=== PATIENT | male | born 1945 | race Caucasian/White ===

== ENCOUNTER 2019-06-23 08:14 | Outpatient (CLI) | payer MEDICARE, OTHER, SELFPAY ==
[2019-06-23 09:24] LABS: Prostate Specific Antigen < 0.02 ng/mL (0-4)
== END 2019-06-23 08:15 | disposition home or self-care (01) ==
LOC: ONCMED 08:14
PROVIDERS: Family Provider Family Medicine; PCP Family Medicine; Visit Provider Internal Medicine Medical Oncology
DX: C61 Malignant neoplasm of prostate (principal)
CPT/HCPCS: 84153

== ENCOUNTER 2019-08-05 08:21 | Outpatient (CLI) | payer MEDICARE, OTHER, SELFPAY ==
[2019-08-05 09:34] LABS: Prostate Specific Antigen 0.05 ng/mL (0-4)
== END 2019-08-05 08:22 | disposition home or self-care (01) ==
LOC: ONCMED 08:24
PROVIDERS: Family Provider Family Medicine; PCP Family Medicine; Visit Provider Internal Medicine Medical Oncology
DX: C61 Malignant neoplasm of prostate (principal)
CPT/HCPCS: 84153

== ENCOUNTER 2019-08-17 13:10 | Outpatient (RCR) | payer MEDICARE, OTHER, SELFPAY ==
[2019-08-17 13:38] LABS: Miscellaneous Test See Scanned Lab Rpt
== END 2019-08-24 23:59 | disposition home or self-care (01) ==
LOC: ONCMED 13:10
PROVIDERS: Family Provider Family Medicine; PCP Family Medicine; Visit Provider Internal Medicine Medical Oncology
DX: C61 Malignant neoplasm of prostate (principal)
CPT/HCPCS: 36415

== ENCOUNTER 2019-11-17 07:00 | Outpatient (CLI) | payer MEDICARE, OTHER, SELFPAY | END 2019-11-17 07:01 | disposition home or self-care (01) | LOC: ONCMED 07:04 | PROVIDERS: PCP Family Medicine; Visit Provider Internal Medicine Medical Oncology | DX: C61 Malignant neoplasm of prostate (principal) | CPT/HCPCS: 84153 ==

== ENCOUNTER 2020-01-13 08:11 | Outpatient (CLI) | payer MEDICARE, OTHER, SELFPAY ==
--- NOTE | 2020-01-14 07:16 | ONC FU_ITS ---
Dr. Stanley Patient Follow-Up Note Patient: Pola Greer Unit #: [id number]: 1945 Dicatated By: Darren Stanley M.D.Date of Visit:Jan 13, 2020 Onc Med Follow-up/Prog Note Chief Complaint: Prostate cancer. 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 He had been diagnosed with Aaron score 7 adenocarcinoma of the prostate in 2009. He underwent robotic-assisted prostatectomy in October 2009. He first had evidence of biochemical recurrence in March 2016 with PSA 0.3 ng/mL. He reportedly had a palpable nodule on digital rectal exam. He was treated with radiation to the prostate bed, completed on 06/24/2016 to a total dose of 7200 cGy. His baseline pretreatment PSA was 0.60 ng/mL, and by 08/26/2016 it had declined to 0.02 ng/mL. However, as of January 2017 it had increased to 0.59 ng/mL, and by 03/27/2017 it was up to 0.87 ng/mL. Further evaluation with C11 PET choline imaging and MR showed findings consistent with metastatic involvement in the L5 vertebral body. He was referred to [facility], where he underwent radiofrequency ablation to the L5 vertebral body. He then began androgen deprivation therapy with Depo-Lupron together with Casodex for 30 days. He continued androgen deprivation with a 30 mg injection of Depo-Lupron on 07/30/2017. Their recommendation was to continue his treatment for 12-18 months and then consider transitioning to intermittent hormonal therapy. His PSA level here on 12/15/2017 was down to 0.07 ng/mL. He then continued his further follow-up at [facility]. He was given a 45 mg Lupron injection on 02/10/2018. As of 03/23/2018 the PSA was up slightly, to 1.4 ng/mL, and as of 05/27/2018 it had further increased to 2.4 ng/mL. A testosterone level from 06/04/2018 was castrate range at 7.0, and his PSA at that point was up to 3.3 ng/mL. MR of the prostate on 06/04/2018 was negative for local recurrence and negative for lymph node metastasis. PET CT choline on 06/04/2018 showed progression of choline avid skeletal metastatic prostate cancer both above and below the diaphragms. Sites of involvement include the T10 vertebral body, right sixth rib, left humeral head, left iliac wing, and left side of the L5 vertebral body. MRI of the lumbar spine on 06/05/2018 showed mild compression fracture at L5 without retropulsion. There was additional metastasis involving the T10 vertebral body and a small metastasis in the L4 vertebral body. There was partially visualized metastasis in the left iliac bone. Given the aggressive nature of his disease, the recommendation was to proceed with a trial of chemotherapy with docetaxel/prednisone and to continue androgen deprivation therapy with Depo-Lupron. He began his 1st of 6 planned cycles of docetaxel/prednisone on 06/16/2018. His treatment was stopped after the 5th cycle, completed on 09/08/2018, due to increasing toxicities, including fatigue, peripheral neuropathy, and [employer] side effects. He had a follow-up visit at [facility] in October 2018. His PSA was undetectable at <0.1 ng/mL. He was recommended to continue androgen deprivation with Lupron and to consider addition of Zytiga or Xtandi with any evidence of further disease progression. As of May 2019 his PSA level remained <0.02 ng/mL, but in July 2019 it did increase slightly, to 0.05 ng/mL. He had a follow-up visit at [facility] on 12/06/2019. His PSA level at that point had increased to 0.51 ng/mL. His C-11 choline scan revealed multiple new choline avid osseous metastases involving the right sixth rib, right T6 vertebral body, and new foci of choline uptake in the previously ablated L5 vertebral body. Uptake in right paratracheal and cervical lymph nodes was indeterminate but suspicious for metastatic disease. MRI of the prostate revealed additional osseous metastases in the L4 and L5 vertebral bodies and possibly the femoral neck. With those findings, he began second generation androgen deprivation therapy with abiraterone 1000 mg daily together with prednisone 5 mg twice daily. In addition, he was given SBRT to the right sixth rib and T6 vertebral body lesions, completed on 12/30/2019. His other medical illnesses include hypertension and hyperlipidemia. He also has had treatment for bicipital tendinitis. He is a nonsmoker. INTERIM HISTORY: Due to the further progression of his disease, I had requested a next generation sequencing study to be performed on the October 2009 biopsy. The study was resulted on 12/23/2019. There were no actionable mutations identified. In particular, the BRCA1 and BRCA2 mutations were not detected. The tumor did test positive androgen receptor by IHC. It was MSI stable. He is seen for a follow-up visit. Thus far he has been tolerating the abiraterone/prednisone with tolerable side effects. He does have some fatigue, but he is still doing some work at the farm. His ECOG score is 1. His appetite is good. He has not had fever. He continues to have some hot flashes and sweating. He occasionally has a little diarrhea. He has mild exertional dyspnea and some cough, but those are attributable to seasonal allergies. He has had no chest pain. He has some urgency with urination, but bladder function remains adequate. He currently has no significant joint or bone pain. He has no focal neurologic symptoms. Medications: Atorvastatin Calcium 1 Tablet (of 10 mg) Tablet Oral daily, EQ Loratadine 1 Tablet (of 10 mg) Oral daily PRN, Flonase 2 spray(s) (of 50 mcg/act) Suspension Nasal daily PRN, Leuprolide Acetate (6 Month) 45 mg (of 45 mg) Intramuscular q 24 weeks, PredniSONE 1 Tablet (of 5 mg) Oral b.i.d., Telmisartan 1 Tablet (of 40 mg) Tablet Oral daily, Zytiga 4 Tablet (of 250 mg) Oral daily Allergies: PCN and Sulfa. Review of Systems: Constitutional - His energy is fair, but he does tire easily. He is able to do work, but not as much. His appetite is good and his weight is stable. No fevers. He has some hot flashes and sweating. ECOG score is 1, ENMT - He has seasonal allergies. No mouth sores. No sore throat or difficulty swallowing, Hematologic/Lymphatic - No abnormal bruising or bleeding, Respiratory - He has some shortness of breath at timess and cough which are allergy related and seasonal. No pleuritic pain or hemoptysis, Cardiovascular - No angina pain. No palpitations, Gastrointestinal - No nausea or vomiting. No heartburn or acid reflux. No diarrhea or constipation. No blood in the stool or black stools, Genitourinary (M) - No dysuria or hematuria. He has some urgency with urination. No incontinence, Musculoskeletal - No joint or bone pain, Integumentary - No skin complications, Neurologic - No headache. He has occasional dizziness. No numbness or tingling. No other focal neurologic symptoms, Psychiatric - He has some mild anxiety. No depression. No insomnia. Vital Signs: Performed on Jan 13, 2020 08:42 Height - 65.00 in Weight - 175.8 lbs (LOW) BSA - 1.87 sq.m BMI - 29.25 Temperature - 97.3 F (LOW) Pulse - 78 /min Respiration - 17 /min BP - 129/89 mm(hg) O2 Sat - 97 % Pain - 0 Fatigue - 2 Physical Examination: Constitutional - He looks good generally, Eyes - Sclerae nonicteric. Conjunctivae clear, ENMT - No lesions noted in the oral cavity, Hematologic/Lymphatic - No cervical, clavicular, or axillary adenopathy, Respiratory - Lungs are clear with good air movement bilaterally, Cardiovascular - Heart rhythm is regular. There is a II/ systolic murmur. There is no gallop or rub noted, Abdomen - Soft. Liver and spleen are not enlarged. There is no abdominal mass or ascites noted and there is no inguinal adenopathy, Back/Spine - No bony tenderness in the spine or ribs, Extremities - No edema. Pedal pulses are palpable bilaterally, Integumentary - No skin eruption, Neurologic - No focal neurologic deficits noted. Impression: 1. Patient with [place] score 7 adenocarcinoma of the prostate, stage III at initial diagnosis in 2009, but with subsequent progression to stage IV. 2. He underwent radical prostatectomy in October 2009. 3. He had evidence of biochemical recurrence in January 2016, and he was then given radiation to the prostate bed. Treatment was completed on 06/24/2016 to a total dose of 7200 cGy. 4. He had rising PSA level in March 2017, and at that point there was evidence on imaging studies of metastatic involvement in the L5 vertebral body. He underwent radiofrequency ablation to L5. 5. He then began androgen deprivation therapy with Depo-Lupron together with Casodex for 30 days. He had a good response by PSA level. His other medical illnesses include: 6. Hypertension. 7. Hyperlipidemia. 8. He has had treatment for bicipital tendinitis. During subsequent follow-up there was a gradual increase in his PSA level on androgen deprivation therapy. In May 2018 he underwent evaluation at [facility] and he was found to have multiple additional sites of metastatic bone involvement by C-11 choline PET/CT. These did not appear to be symptomatic. On 06/16/2018 he began a trial of chemotherapy with his 1st of 6 planned cycles of docetaxel/prednisone. The treatment was stopped after the 5th cycle, completed on 09/08/2018, due to multiple toxicities including fatigue, diarrhea, neutropenia, peripheral neuropathy, and [employer] toxicity. At his follow-up at [facility] in October 2018 his PSA was undetectable, and he then continued androgen deprivation with Lupron. By July 2019 the PSA had increased slightly, to 0.05 ng/mL. As of his follow-up visit at [facility] on 12/06/2019 it had further increased to 0.51 ng/mL. There were new areas of metastatic bone involvement detected on his C-11 choline PET, including the right 6th rib and T6 vertebral body and there were additional sites of involvement noted on MRI including the L4 and L5 vertebral bodies and possibly the femoral neck, He then began 2nd generation androgen deprivation with ab irate around 1000 mg daily together with prednisone 5 mg twice daily. In addition, he was given SBRT to the right sixth rib and T6 vertebral body lesions, completed on 12/30/2019. Plan: He will continue treatment with abiraterone 1000 mg daily together with prednisone 5 mg twice daily, and he will continue his Lupron injections. His PSA level is being monitored monthly, and it is due to be drawn again in the first week of January. He has scheduled follow-up at [facility] in March. Signed By: Darren Stanley M.D. <<Signature on File>>
== END 2020-01-13 08:12 | disposition home or self-care (01) ==
LOC: ONCMED 08:13
PROVIDERS: PCP Family Medicine; Visit Provider Internal Medicine Medical Oncology
DX: C61 Malignant neoplasm of prostate (principal); C79.51 Secondary malignant neoplasm of bone; R97.21 Rising PSA following treatment for malignant neoplasm of prostate; I10 Essential (primary) hypertension; E78.5 Hyperlipidemia, unspecified; M75.22 Bicipital tendinitis, left shoulder; M75.21 Bicipital tendinitis, right shoulder; Z90.79 Acquired absence of other genital organ(s); Z79.818 Long term (current) use of other agents affecting estrogen receptors and estrogen levels; Z79.52 Long term (current) use of systemic steroids
CPT/HCPCS: 99214

== ENCOUNTER 2020-01-26 08:32 | Outpatient (CLI) | payer MEDICARE, OTHER, SELFPAY ==
[2020-01-26 09:09] LABS: Basophils # 0.1 10^3/uL (0.0-0.1); Basophils % 0.9 %; Eosinophils # 0.2 10^3/uL (0.0-0.8); Eosinophils % 3.1 %; Hematocrit 48.1 % (42.0-52.0); Hemoglobin 15.8 g/dL (11.7-16.6); Lymphocytes # 1.3 10^3/uL (0.8-4.8); Lymphocytes % 19.4 %; Mean Corpuscular HGB Conc 32.8 g/dL (30.0-36.0); Mean Corpuscular Hemoglobin 30.7 pg (28.0-34.0); Mean Corpuscular Volume 93.6 fL (80-94); Mean Platelet Volume 9.7 fL (7.4-10.4); Monocytes # 0.4 10^3/uL (0.2-0.9); Monocytes % 6.2 %; Neutrophils # 4.46 10^3/uL (1.8-7.7); Neutrophils % 68.9 %; Nucleated Red Blood Cells % 0 %; Platelet Count 197 10^3/cmm (130-400); Red Blood Count 5.14 10^6/uL (4.1-5.3); Red Cell Distribution Width 14.7 % (12.1-15.1); White Blood Count 6.5 10^3/uL (4.0-10.0)
[2020-01-26 09:50] LABS: Prostate Specific Antigen 0.029 ng/mL (0-4); Testosterone Total 2.5 ng/dL (193-740)
[2020-01-26 10:01] LABS: Alanine Aminotransferase 27 U/L (0-41); Alkaline Phosphatase 115 IU/L (40-130); Anion Gap 15.8 (5-19); Aspartate Amino Transferase 17 U/L (0-40); Blood Urea Nitrogen 17 mg/dL (8-23); Calcium 9.2 mg/dL (8.5-10.5); Carbon Dioxide 26 mmol/L (22-29); Chloride 102 mmol/L (98-107); Globulin 2.5 g/dL (1.3-4.6); Glucose 167 mg/dL (65-115); Osmolality Calculated 290 mOsm/kg (285-295); Potassium 3.8 mmol/L (3.5-5.1); Sodium 140 mmol/L (136-145); Total Bilirubin 1.5 mg/dL (0.15-1.2); Total Protein 6.5 g/dL (6.6-8.7)
== END 2020-01-26 08:33 | disposition home or self-care (01) ==
LOC: ONCMED 08:34
PROVIDERS: PCP Family Medicine; Visit Provider Internal Medicine Medical Oncology
DX: C61 Malignant neoplasm of prostate (principal); C79.51 Secondary malignant neoplasm of bone; Z92.3 Personal history of irradiation
CPT/HCPCS: 80053; 84153; 84403; 85025

== ENCOUNTER 2020-02-24 08:04 | Outpatient (CLI) | payer MEDICARE, OTHER, SELFPAY ==
[2020-02-24 09:06] LABS: Prostate Specific Antigen 0.008 ng/mL (0-4)
== END 2020-02-24 08:05 | disposition home or self-care (01) ==
LOC: ONCMED 08:06
PROVIDERS: PCP Family Medicine; Visit Provider Internal Medicine Medical Oncology
DX: C61 Malignant neoplasm of prostate (principal); C79.51 Secondary malignant neoplasm of bone; D70.2 Other drug-induced agranulocytosis; G62.0 Drug-induced polyneuropathy; T45.1X5A Adverse effect of antineoplastic and immunosuppressive drugs, initial encounter; Z92.3 Personal history of irradiation
CPT/HCPCS: 36415; 84153

== ENCOUNTER 2020-03-27 06:24 | Outpatient (CLI) | payer MEDICARE, OTHER, SELFPAY ==
[2020-03-27 08:58] LABS: Prostate Specific Antigen < 0.006 ng/mL (0-4)
== END 2020-03-27 06:25 | disposition home or self-care (01) ==
LOC: ONCMED 06:25
PROVIDERS: PCP Family Medicine; Visit Provider Internal Medicine Medical Oncology
DX: C61 Malignant neoplasm of prostate (principal); C79.51 Secondary malignant neoplasm of bone; D70.2 Other drug-induced agranulocytosis; G62.0 Drug-induced polyneuropathy; T45.1X5A Adverse effect of antineoplastic and immunosuppressive drugs, initial encounter; Z92.3 Personal history of irradiation
CPT/HCPCS: 36415; 84153

== ENCOUNTER 2020-04-26 06:15 | Outpatient (CLI) | payer MEDICARE, OTHER, SELFPAY ==
[2020-04-26 12:03] LABS: Prostate Specific Antigen 0.006 ng/mL (0-4)
== END 2020-04-26 06:16 | disposition home or self-care (01) ==
LOC: ONCMED 06:17
PROVIDERS: PCP Family Medicine; Visit Provider Internal Medicine Medical Oncology
DX: C61 Malignant neoplasm of prostate (principal); C79.51 Secondary malignant neoplasm of bone; D70.2 Other drug-induced agranulocytosis; G62.0 Drug-induced polyneuropathy; T45.1X5A Adverse effect of antineoplastic and immunosuppressive drugs, initial encounter; Z92.3 Personal history of irradiation
CPT/HCPCS: 36415; 84153

== ENCOUNTER 2020-05-29 08:19 | Outpatient (CLI) | payer MEDICARE, OTHER, SELFPAY ==
[2020-05-29 12:17] LABS: Prostate Specific Antigen Scr 0.01 ng/mL (0-4)
== END 2020-05-29 08:20 | disposition home or self-care (01) ==
LOC: ONCMED 08:22
PROVIDERS: PCP Family Medicine; Visit Provider Internal Medicine Medical Oncology
DX: C61 Malignant neoplasm of prostate (principal)
CPT/HCPCS: 36415; G0103

== ENCOUNTER 2020-06-29 08:03 | Outpatient (CLI) | payer MEDICARE, OTHER, SELFPAY ==
[2020-06-29 09:02] LABS: Prostate Specific Antigen 0.035 ng/mL (0-4)
== END 2020-06-29 08:04 | disposition home or self-care (01) ==
LOC: ONCMED 08:05
PROVIDERS: PCP Family Medicine; Visit Provider Internal Medicine Medical Oncology
DX: C61 Malignant neoplasm of prostate (principal); C79.51 Secondary malignant neoplasm of bone; R97.20 Elevated prostate specific antigen [PSA]
CPT/HCPCS: 36415; 84153

== ENCOUNTER 2020-07-27 08:05 | Outpatient (CLI) | payer MEDICARE, OTHER, SELFPAY ==
[2020-07-27 09:26] LABS: Prostate Specific Antigen 0.074 ng/mL (0-4)
== END 2020-07-27 08:06 | disposition home or self-care (01) ==
LOC: ONCMED 08:07
PROVIDERS: PCP Family Medicine; Visit Provider Internal Medicine Medical Oncology
DX: C61 Malignant neoplasm of prostate (principal)
CPT/HCPCS: 36415; 84153

== ENCOUNTER 2020-08-28 08:23 | Outpatient (CLI) | payer MEDICARE, OTHER, SELFPAY ==
[2020-08-28 09:41] LABS: Prostate Specific Antigen 0.058 ng/mL (0-4)
== END 2020-08-28 08:24 | disposition home or self-care (01) ==
LOC: ONCMED 08:26
PROVIDERS: PCP Family Medicine; Visit Provider Internal Medicine Medical Oncology
DX: C61 Malignant neoplasm of prostate (principal)
CPT/HCPCS: 36415; 84153

== ENCOUNTER 2020-10-09 08:36 | Outpatient (CLI) | payer MEDICARE, OTHER, SELFPAY ==
[2020-10-09 09:59] LABS: Prostate Specific Antigen < 0.006 ng/mL (0-4)
[2020-10-09 10:07] LABS: Alanine Aminotransferase 20 U/L (0-41); Aspartate Amino Transferase 14 U/L (0-40); Potassium 3.9 mmol/L (3.5-5.1)
== END 2020-10-09 08:37 | disposition home or self-care (01) ==
LOC: ONCMED 08:39
PROVIDERS: PCP Family Medicine; Visit Provider Internal Medicine Medical Oncology
DX: C61 Malignant neoplasm of prostate (principal); R97.20 Elevated prostate specific antigen [PSA]; Z79.899 Other long term (current) drug therapy
CPT/HCPCS: 84132; 84153; 84450; 84460

== ENCOUNTER 2021-02-05 15:42 | Outpatient (CLI) | payer MEDICARE, OTHER, SELFPAY ==
--- NOTE | 2021-02-05 | USCV_ITS ---
Pola Greer Age: 75 Gender: M : 1945 Exam Date: 02/05/2021 16:09 Ordering Phys: Osbaldo Hinojosa DO Technologist: ZACHARY Exam Location: [facility] – [place], [place]_ Indication: EDEMA PROCEDURES: Venous duplex imaging was performed in only the left lower extremity. The following venous structures were evaluated: common femoral vein, profunda vein, proximal portion of the greater saphenous vein, superficial femoral vein, and the popliteal vein. In addition, the posterior tibial and peroneal trunk were evaluated. Serial compression, augmentation maneuvers, and spectral Doppler flow evaluation were performed. FINDINGS: Normal 2-D Doppler and augmentation and compressibility throughout the lower extremity venous structures. Additional imaging through the proximal calf veins also reveals no thrombus. Limited evaluation of the greater saphenous vein is patent with no thrombus. Left lower extremity Palma's cyst noted. CONCLUSIONS No DVT left lower extremity. There is a left lower extremity Palma's cyst . Dr. Petra Lisa DO (Electronically Signed) Final Date: 05 February 2021 16:31 S
== END 2021-02-05 15:43 | disposition home or self-care (01) ==
PROVIDERS: PCP Family Medicine; Visit Provider Family Medicine
DX: M79.662 Pain in left lower leg (principal); R60.9 Edema, unspecified; M71.22 Synovial cyst of popliteal space [Baker], left knee
CPT/HCPCS: 93971

== ENCOUNTER 2021-02-13 09:05 | Outpatient (CLI) | payer MEDICARE, OTHER, SELFPAY ==
--- NOTE | 2021-02-13 09:08 | XR_ITS ---
WS: [id number] LEFT KNEE: 3 VIEW(S) TECHNIQUE: AP, oblique(s) and lateral. HISTORY: KNEE JOINT PAIN, LEFT COMPARISON: None available. No fracture or dislocation. Severe narrowing of the medial compartment and moderate osteoarthritic changes in the lateral patello femoral joint spaces. Hypertrophic bone formation along the joint lines. No joint effusion. Moderate calcification in the popliteal artery. XR/XR knee LT 3V* [id number] IMPRESSION: 1. Severe narrowing and osteoarthritis in the medial compartment. 2. Moderate lateral patellofemoral compartment osteoarthritis. 3. Moderate peripheral arterial disease.
== END 2021-02-13 09:06 | disposition home or self-care (01) ==
PROVIDERS: PCP Family Medicine; Visit Provider Clinical Nurse Specialist Adult Health
DX: M17.12 Unilateral primary osteoarthritis, left knee (principal); I73.9 Peripheral vascular disease, unspecified
CPT/HCPCS: 73562

== ENCOUNTER 2021-07-16 15:11 | Outpatient (CLI) | payer MEDICARE, OTHER, SELFPAY ==
--- NOTE | 2021-07-16 15:20 | XR_ITS ---
WS: [id number] LEFT SHOULDER: 2 VIEW(S) TECHNIQUE: Internal and external rotation. HISTORY: PAIN IN LEFT SHOULDER COMPARISON: None available. No fracture or dislocation or soft tissue abnormality. Small osteophyte from the distal clavicle. Mild narrowing of the glenohumeral joint. XR/XR shoulder LT min 2V* [id number] IMPRESSION: Mild osteoarthritis at the glenohumeral joint and AC joint.
== END 2021-07-16 15:12 | disposition home or self-care (01) ==
LOC: RAD 15:15
PROVIDERS: PCP Family Medicine; Visit Provider Clinical Nurse Specialist Adult Health
DX: M19.012 Primary osteoarthritis, left shoulder (principal)
CPT/HCPCS: 73030

== ENCOUNTER 2021-10-03 15:52 | Outpatient (CLI) | payer MEDICARE, OTHER, SELFPAY ==
--- NOTE | 2021-10-03 | USCV_ITS ---
Ankle-Brachial Index Pola Greer Age: 76 Gender: M : 1945 Exam Date: 10/03/2021 16:42 Ordering Phys: Osbaldo Hinojosa DO Technologist: NALLELY Exam Location: [facility] – [place] Indication: pre-op clearance for LEFT total hip. No hx cardiac intervention per patient. BP: / HR: 75 Rhythm: Sinus Technical Quality: Adequate MEASUREMENTS (Male / Female) Normal Values 2D ECHO LV Diastolic Diameter PLAX 4.4 cm 4.2 - 5.9 / 3.9 - 5.3 cm LV Systolic Diameter PLAX 2.6 cm IVS Diastolic Thickness 1.6 cm 0.6 - 1.0 / 0.6 - 0.9 cm IVS Systolic Thickness 1.7 cm LVPW Diastolic Thickness 1.3 cm 0.6 - 1.0 / 0.6 - 0.9 cm LVPW Systolic Thickness 1.6 cm LVOT Diameter 2.0 cm LV Ejection Fraction 2D Teich 71.3 % LV Ejection Fraction MOD 2C 75.1 % LV Ejection Fraction 2C AL 74.2 % LA Diameter 3.4 cm LA Width 3.6 cm LA Height 5.7 cm RA Width 2.4 cm RA Height 4.2 cm Aorta at Sinotubular Diameter 3.0 cm IVC Diameter 1.9 cm M-MODE Aortic Annulus Diameter 3.3 cm LA Ao Ratio MM 1.1 MV E Point Septal Separation 0.4 cm DOPPLER AV Peak Velocity 127.0 cm/s LVOT Peak Velocity 114.0 cm/s AV Area Cont Eq vti 2.8 cm squared AV Area Cont Eq pk 2.8 cm squared MV Peak Velocity 124.0 cm/s MV Area PHT 4.2 cm squared Mitral E to A Ratio 0.7 MV E' Velocity 44.5 cm/s Mitral E to MV E' Ratio 9.4 Mitral E to LV E' Lateral Ratio 10.4 Mitral E to LV E' Septal Ratio 8.7 TR Peak Velocity 186.3 cm/s TR Peak Gradient 13.9 mmHg PV Peak Velocity 110.0 cm/s FINDINGS Left Ventricle Normal left ventricular size and systolic function, EF 73 %. oMild left ventricular hypertrophy. n. No regional wall motion abnormalities. Grade I/IV diastolic dysfunction (abnormal relaxation filling pattern), normal to mildly elevated filling pressures. Right Ventricle Normal right ventricular systolic function. Right Atrium The right atrium is normal in size. Left Atrium Mildly dilated left atrium Mitral Valve Moderate mitral annular calcification Aortic Valve Thickened aortic valve Tricuspid Valve No gross abnormalities no Pulmonic Valve No gross abnormalities no Pericardium Normal pericardium without effusion. Aorta Normal ascending aorta dimension. CONCLUSIONS Normal left ventricular size and systolic function, EF 73 %. oMild left ventricular hypertrophy. n. No regional wall motion abnormalities. Grade I/IV diastolic dysfunction (abnormal relaxation filling pattern), normal to mildly elevated filling pressures. Mildly dilated left atrium. Moderate mitral annular calcification. Thickened aortic valve. No significant stenotic or ureteral lesions There is no pericardial effusion. There are no intracardiac masses. Compared to the study from 10/17/2018, there may not be a significant change Dr Ziggy Montoya MD FACC (Electronically Signed) Final Date: 04 Oct 2021 07:23 S
== END 2021-10-03 15:53 | disposition home or self-care (01) ==
LOC: RAD 15:55
PROVIDERS: PCP Family Medicine; Visit Provider Family Medicine
DX: R94.31 Abnormal electrocardiogram [ECG] [EKG] (principal); R60.9 Edema, unspecified; I49.9 Cardiac arrhythmia, unspecified
CPT/HCPCS: 93306

== ENCOUNTER → 2022-01-07 11:17 | Outpatient (BNVA) | payer MEDICARE, OTHER, SELFPAY | PROVIDERS: PCP Family Medicine; Visit Provider Clinical Nurse Specialist Adult Health | DX: R30.0 Dysuria (principal); N39.0 Urinary tract infection, site not specified; R35.0 Frequency of micturition; B36.9 Superficial mycosis, unspecified; M25.551 Pain in right hip; H61.20 Impacted cerumen, unspecified ear | CPT/HCPCS: 81000; 87086 ==

== ENCOUNTER → 2022-01-30 08:33 | Outpatient (BNVA) | payer MEDICARE, OTHER, SELFPAY | PROVIDERS: PCP Family Medicine; Visit Provider Family Medicine | DX: N39.0 Urinary tract infection, site not specified (principal) | CPT/HCPCS: 81000; 87086 ==

== ENCOUNTER 2022-03-19 09:58 | Oncology outpatient (recurring) (ONCR) | payer MEDICARE, OTHER, SELFPAY | END 2022-03-25 23:59 | disposition home or self-care (01) | PROVIDERS: PCP Family Medicine; Visit Provider Internal Medicine Medical Oncology | DX: C79.51 Secondary malignant neoplasm of bone (principal); C61 Malignant neoplasm of prostate; Z92.3 Personal history of irradiation; Z92.21 Personal history of antineoplastic chemotherapy; Z79.52 Long term (current) use of systemic steroids | CPT/HCPCS: 99215 ==

== ENCOUNTER 2022-04-24 14:03 | Oncology outpatient (recurring) (ONCR) | payer MEDICARE, OTHER, SELFPAY ==
[2022-04-17 10:23] LABS: Basophils % 0.3 %; Eosinophils % 0.1 %; Hemoglobin 12.1 g/dL (11.7-16.6); Mean Corpuscular HGB Conc 31.8 g/dL (30.0-36.0); Mean Corpuscular Hemoglobin 27.9 pg (28.0-34.0); Mean Corpuscular Volume 87.6 fl (80-94); Mean Platelet Volume 8.7 fL (7.4-10.4); Monocytes # 0.8 10^3/uL (0.2-0.9); Monocytes % 8.4 %; Neutrophils # 7.59 10^3/uL (1.8-7.7); Neutrophils % 77.1 %; Nucleated Red Blood Cells % 0 %; Platelet Count 241 10^3/cmm (130-400); Red Blood Count 4.34 10^6/uL (4.1-5.3); Red Cell Distribution Width 18.6 % (12.1-15.1); White Blood Count 9.8 10^3/uL (4.0-10.0)
[2022-04-17 10:44] LABS: Alanine Aminotransferase 25 U/L (0-41); Albumin Level 3.4 g/dL (3.5-5.2); Anion Gap 16.2 (5-19); Aspartate Amino Transferase 28 U/L (0-40); Blood Urea Nitrogen 18 mg/dL (8-23); Calcium 8.9 mg/dL (8.5-10.5); Carbon Dioxide 24 mmol/L (22-29); Chloride 99 mmol/L (98-107); Globulin 3.1 g/dL (1.3-4.6); Glucose 153 mg/dL (65-115); Osmolality Calculated 285 mOsm/kg (285-295); Potassium 4.2 mmol/L (3.5-5.1); Sodium 135 mmol/L (136-145); Total Bilirubin 0.9 mg/dL (0.15-1.2); Total Protein 6.5 g/dL (6.6-8.7)
[2022-04-17 11:04] LABS: Alkaline Phosphatase 1766 U/L (40-130)
[2022-04-22 10:04] VITALS: RESP 16; O2SAT 98
[2022-04-22] MEDS: morphine 4 mg/mL SDV 1 mL IVP (10:04)
[2022-04-22] MEDS: sodium chloride 0.9% 1,000 ML 999 ML IV (10:04)
[2022-04-22] MEDS: methylnaltrexone 12 /0.6 mL INJ 12 MG SUBCUT (11:10)
[2022-04-22 12:45] VITALS: BP 136/74; PULSE 80; RESP 16; TEMP 36.6
[2022-04-24 14:27] VITALS: BP 141/74; PULSE 100; RESP 16; TEMP 36.1
[2022-04-24] MEDS: sodium chloride 0.9% 1,000 ML 999 ML IV (14:51)
[2022-04-24 16:10] VITALS: BP 130/82; PULSE 96; RESP 16; TEMP 36.5; O2SAT 95
== END 2022-04-24 23:59 | disposition home or self-care (01) ==
PROVIDERS: PCP Family Medicine; Visit Provider Internal Medicine Medical Oncology
DX: C61 Malignant neoplasm of prostate (principal); C79.51 Secondary malignant neoplasm of bone; Z79.52 Long term (current) use of systemic steroids; Z79.818 Long term (current) use of other agents affecting estrogen receptors and estrogen levels; Z79.899 Other long term (current) drug therapy
CPT/HCPCS: 36415; 80053; 85025; 96365; 96366; 96372; 96375; 99214; J2212; J2270; J7030

== ENCOUNTER 2022-04-30 09:00 | Oncology outpatient (recurring) (ONCR) | payer MEDICARE, OTHER, SELFPAY ==
[2022-04-26] MEDS: sodium chloride 0.9% 1,000 ML 999 ML IV (09:45)
[2022-04-26 11:44] VITALS: BP 113/74; PULSE 66; RESP 18; TEMP 36.5; O2SAT 98
[2022-04-30 09:30] VITALS: BP 148/85; PULSE 89; RESP 18; TEMP 37.2; O2SAT 97
--- NOTE | 2022-04-30 10:14 | XR_ITS ---
WS: [id number] EXAMINATION: XR hip RT 2-3V wo/w pel* [id number] REASON FOR EXAM: Right hip pain history of prostate cancer COMPARISON: None available. ORDER DATE: 04/30/2022 10:15 AM TECHNIQUE: Frontal internal/external rotation views of the right hip were obtained. X-RAY FINDINGS: There are no fractures or dislocations. Normal motion with internal/external rotation is present. There is a diffuse patchy sclerotic pattern vaguely present throughout all of the visualized osseous structures of the hip and hemipelvis which especially dense sclerotic change in the anterior and post erior iliac wing consistent with very osteoblastic-appearing metastatic changes. Minor vascular calci fications are seen. XR/XR hip RT 2-3V wo/w pel* [id number] IMPRESSION: 1. No fractures or dislocations of the right hip. 2. Patchy osseous metastatic disease as noted.
[2022-04-30] MEDS: sodium chloride 0.9% 1,000 ML 250 ML IV (10:15)
[2022-04-30 10:24] LABS: Basophils % 0.6 %; Eosinophils # 0.1 10^3/uL (0.0-0.8); Hematocrit 31.4 % (42.0-52.0); Hemoglobin 9.6 g/dL (11.7-16.6); Lymphocytes # 0.6 10^3/uL (0.8-4.8); Lymphocytes % 9.8 %; Mean Corpuscular HGB Conc 30.6 g/dL (30.0-36.0); Mean Corpuscular Hemoglobin 27.8 pg (28.0-34.0); Mean Platelet Volume 9.3 fL (7.4-10.4); Monocytes # 0.6 10^3/uL (0.2-0.9); Neutrophils # 4.29 10^3/uL (1.8-7.7); Neutrophils % 69.2 %; Nucleated Red Blood Cells # 0.1 /100WBC; Nucleated Red Blood Cells % 0.8 %; Platelet Count 232 10^3/cmm (130-400); Red Blood Count 3.45 10^6/uL (4.1-5.3); Red Cell Distribution Width 18.6 % (12.1-15.1); White Blood Count 6.2 10^3/uL (4.0-10.0)
[2022-04-30 10:27] LABS: Slide Review Slide Review Perform
[2022-04-30 10:45] LABS: Alanine Aminotransferase 43 U/L (0-41); Albumin Level 3.1 g/dL (3.5-5.2); Aspartate Amino Transferase 29 U/L (0-40); Blood Urea Nitrogen 7 mg/dL (8-23); Calcium 8.7 mg/dL (8.5-10.5); Carbon Dioxide 23 mmol/L (22-29); Chloride 97 mmol/L (98-107); Globulin 3.1 g/dL (1.3-4.6); Glucose 132 mg/dL (65-115); Osmolality Calculated 276 mOsm/kg (285-295); Sodium 133 mmol/L (136-145); Total Bilirubin 0.7 mg/dL (0.15-1.2); Total Protein 6.2 g/dL (6.6-8.7)
[2022-04-30 10:46] LABS: Anion Gap 17.3 (5-19); Potassium 4.3 mmol/L (3.5-5.1)
[2022-04-30 11:06] LABS: Alkaline Phosphatase 1770 U/L (40-130)
[2022-04-30 12:40] VITALS: BP 151/72; PULSE 87; RESP 17; TEMP 36.9; O2SAT 96
== END 2022-05-25 23:59 | disposition home or self-care (01) ==
PROVIDERS: PCP Family Medicine; Visit Provider Internal Medicine Medical Oncology
DX: C61 Malignant neoplasm of prostate (principal); C79.51 Secondary malignant neoplasm of bone; Z79.899 Other long term (current) drug therapy
CPT/HCPCS: 73502; 80053; 84153; 85025; 96365; 96366; 99215; J7030

== ENCOUNTER 2022-05-29 09:38 | Outpatient (CLI) | payer MEDICARE, OTHER, SELFPAY ==
[2022-05-29 10:12] LABS: Hematocrit 31.9 % (42.0-52.0); Hemoglobin 9.5 g/dL (11.7-16.6); Mean Corpuscular HGB Conc 29.8 g/dL (30.0-36.0); Mean Corpuscular Hemoglobin 27.8 pg (28.0-34.0); Mean Corpuscular Volume 93.3 fl (80-94); Mean Platelet Volume 9.2 fL (7.4-10.4); Platelet Count 325 10^3/cmm (130-400); Red Blood Count 3.42 10^6/uL (4.1-5.3); Red Cell Distribution Width 19.4 % (12.1-15.1); White Blood Count 8.4 10^3/uL (4.0-10.0)
[2022-05-29 10:46] LABS: Slide Review Slide Review Perform
[2022-05-29 10:49] LABS: Alanine Aminotransferase 44 U/L (0-41); Albumin Level 3.5 g/dL (3.5-5.2); Anion Gap 18.1 (5-19); Aspartate Amino Transferase 34 U/L (0-40); Blood Urea Nitrogen 14 mg/dL (8-23); Calcium 8.7 mg/dL (8.5-10.5); Carbon Dioxide 27 mmol/L (22-29); Chloride 98 mmol/L (98-107); Globulin 3.5 g/dL (1.3-4.6); Glucose 90 mg/dL (65-115); Osmolality Calculated 288 mOsm/kg (285-295); Potassium 4.1 mmol/L (3.5-5.1); Sodium 139 mmol/L (136-145); Total Bilirubin 0.7 mg/dL (0.15-1.2)
[2022-05-29 10:52] LABS: Absolute Neutrophil 5.5 10^3/cmm (1.4-6.5); Absolute Segmented Neutrophil 5.2 10/cmm (1.6-7.1); Band Neutrophils Absolute 0.3 10^3/cmm (0.0-1.2); Eosinophils 1 %; Hypochromasia 1+; Lymphocytes 23 %; Lymphocytes Absolute 1.9 10^3/cmm (1.2-3.4); Monocytes Absolute 0.4 10^3/cmm (0.1-0.6); Platelet Estimate Normal (Normal); Segmented Neutrophils 62 %; Total Cells Counted 100 (0-100)
[2022-05-29 10:53] LABS: Anisocytosis 1+
[2022-05-29 11:03] LABS: Alkaline Phosphatase 1783 U/L (40-130)
== END 2022-05-29 09:39 | disposition home or self-care (01) ==
LOC: LAB 09:44
PROVIDERS: PCP Family Medicine; Visit Provider Internal Medicine Medical Oncology
DX: C61 Malignant neoplasm of prostate (principal); C79.51 Secondary malignant neoplasm of bone
CPT/HCPCS: 36415; 80053; 85007; 85025

== ENCOUNTER 2022-06-10 12:10 | Outpatient (CLI) | payer MEDICARE, OTHER, SELFPAY ==
--- NOTE | 2022-06-10 11:30 | CT_ITS ---
WS: [id number] CT pelvis TECHNIQUE: Noncontrast CT of the pelvis with coronal and sagittal reformatted images. CLINICAL INFORMATION: Metastatic prostate cancer with severe left hip pain COMPARISON: No recent comparisons. DLP: 320.[address] scans at [facility] use at least one of these dose optimization techniques: automated e xposure control; mA and/or kV adjustment per patient size (includes targeted exams where dose is matc hed to clinical indication); or iterative reconstruction. FINDINGS: Diffuse blastic metastasis throughout the visualized bony structures including the lower lumbar spine , pelvis, sacrum, and extending into the hips bilaterally. Prior postoperative changes LEFT DEDE. Blastic lesions visualized in the pubic rami and acetabulum. Be am hardening artifact LEFT DEDE degrades some images. Vascular calcification. Rectosigmoid constipation. Sigmoid diverticulosis. No evidence of acute diverticulitis. No inguinal o r pelvic lymphadenopathy. Vascular calcification. Metastatic lesions extend into the proximal femoral shafts bilaterally. Grade 1 anterolisthesis L5 on S1 with disc space narrowing and chronic LEFT spondylolysis. Mild comp ression superior endplate L5 with endplate Schmorl's node. This is probably chronic. CT/CT pelvis wo con [id number] IMPRESSION: 1. Diffuse blastic metastasis throughout the visualized bony structures includ ing the lower lumbar spine, bony pelvis, and sacrum. 2. Postoperative changes LEFT DEDE. Metastatic lesions extend into both femurs bilaterally. 3. Grade 1 anterolisthesis L5 on S1 with disc space narrowing and chronic LEFT spondylolysis. 4. Mild compression superior endplate L5 with endplate Schmorl's node. This is probably chronic.
--- NOTE | 2022-06-10 11:30 | CT_ITS ---
WS: [id number] CT CHEST TECHNIQUE: Noncontrast CT of the chest with coronal and sagittal reformatted images. CLINICAL INFORMATION: Metastatic prostate cancer with shoulder and rib pain COMPARISON: No recent comparisons. DLP: 334.[address] scans at [facility] use at least one of these dose optimization techniques: automated e xposure control; mA and/or kV adjustment per patient size (includes targeted exams where dose is matc hed to clinical indication); or iterative reconstruction. FINDINGS: Diffuse bony metastasis throughout the visualized bony structures including the visualized axial and appendicular skeleton. Diffuse bilateral rib metastasis. Diffuse metastasis throughout the visualized spine. Partially visualized metastatic lesions in the liver. This can be further evaluated with contrast-enh anced CT abdomen pelvis. Largest lesions measure approximately 3.5 CM. Cholelithiasis. RIGHT adrenal lesion likely adenoma measuring 11 mm. Noncontrast pancreas is normal. Splenic artery calcification. Normal GE junction. Noncontrast spleen is normal. Peripherally calcified RIGHT thyroid nodule measuring 2.1 CCM. Small calcified LEFT thyroid nodule me asuring 8 mm Normal caliber thoracic aorta. Coronary calcification. Normal caliber descending thoracic aorta. No p ericardial effusion. No mediastinal or hilar lymphadenopathy. No axillary lymphadenopathy. RIGHT lung is well aerated. Tiny subpleural nodule superior segment RIGHT lower lobe measuring 4.3 mm . Small LEFT pleural effusion with atelectasis LEFT lower lobe. Chronic anterior wedging in the mid t horacic spine. CT/CT chest wo con [id number] IMPRESSION: 1. Diffuse blastic metastasis throughout the visualized axial and appendicular skeleton including the entire visualized spine, ribs, proximal humerus, scapul a, and clavicles 2. Small LEFT pleural effusion with slight atelectasis LEFT lower lobe. 3. Diffuse metastasis partially visualized in the liver. This can be further e valuated with contrast-enhanced CT abdomen pelvis. 4. Small RIGHT adrenal lesion likely adenoma measuring 11 mm.
== END 2022-06-10 12:11 | disposition home or self-care (01) ==
LOC: RAD 12:11
PROVIDERS: PCP Family Medicine; Visit Provider Internal Medicine Medical Oncology
DX: C61 Malignant neoplasm of prostate (principal); Z96.642 Presence of left artificial hip joint; M51.46 Schmorl's nodes, lumbar region
CPT/HCPCS: 71250; 72192; 99215

== ENCOUNTER 2022-06-11 09:15 | Oncology outpatient (recurring) (ONCR) | payer MEDICARE, OTHER, SELFPAY ==
[2022-06-10 12:03] VITALS: RESP 16
[2022-06-10] MEDS: morphine 4 mg/mL SDV 1 mL SUBCUT (12:03)
[2022-06-10 12:04] LABS: Basophils % 0.6 %; Eosinophils % 0.1 %; Hematocrit 29.3 % (42.0-52.0); Hemoglobin 8.7 g/dL (11.7-16.6); Lymphocytes # 0.6 10^3/uL (0.8-4.8); Lymphocytes % 8.5 %; Mean Corpuscular HGB Conc 29.7 g/dL (30.0-36.0); Mean Corpuscular Hemoglobin 27.6 pg (28.0-34.0); Mean Platelet Volume 9.6 fL (7.4-10.4); Monocytes # 0.9 10^3/uL (0.2-0.9); Monocytes % 12.4 %; Neutrophils # 5.17 10^3/uL (1.8-7.7); Nucleated Red Blood Cells # 0.1 /100WBC; Nucleated Red Blood Cells % 1.4 %; Platelet Count 266 10^3/cmm (130-400); Red Blood Count 3.15 10^6/uL (4.1-5.3); Red Cell Distribution Width 20.6 % (12.1-15.1); White Blood Count 7.1 10^3/uL (4.0-10.0)
[2022-06-10 12:17] LABS: Neutrophils % 78.3 %
[2022-06-10 12:22] LABS: Alanine Aminotransferase 28 U/L (0-41); Albumin Level 3.4 g/dL (3.5-5.2); Anion Gap 17.2 (5-19); Aspartate Amino Transferase 26 U/L (0-40); Blood Urea Nitrogen 14 mg/dL (8-23); Calcium 8.5 mg/dL (8.5-10.5); Carbon Dioxide 23 mmol/L (22-29); Chloride 98 mmol/L (98-107); Globulin 3.1 g/dL (1.3-4.6); Glucose 108 mg/dL (65-115); Osmolality Calculated 279 mOsm/kg (285-295); Potassium 4.2 mmol/L (3.5-5.1); Sodium 134 mmol/L (136-145); Testosterone Total 2.5 ng/dL (193-740); Total Protein 6.5 g/dL (6.6-8.7)
[2022-06-10 12:35] LABS: Alkaline Phosphatase 2063 U/L (40-130)
[2022-06-11 10:05] VITALS: RESP 18
[2022-06-11] MEDS: sodium chloride 0.9% 500 ML 999 ML IV (10:05)
[2022-06-11] MEDS: morphine 4 mg/mL SDV 1 mL IVP (10:05)
== END 2022-06-23 23:59 | disposition home or self-care (01) ==
PROVIDERS: PCP Family Medicine; Visit Provider Internal Medicine Medical Oncology
DX: C61 Malignant neoplasm of prostate (principal)
CPT/HCPCS: 36415; 36591; 71250; 72192; 80053; 84153; 84403; 85025; 96365; 96372; 96375; J2270; J7040